=== PATIENT | male | born 1975 | race Two or more races ===

== ENCOUNTER 2021-08-16 02:05 | Inpatient (IN) | payer SELFPAY ==
[~2021-08-16] VITALS: Ht 162.6 cm; Wt 92.0 kg
[2021-08-16] VITALS (13 sets, daily range): BP systolic 128–194; BP diastolic 81–107
[2021-08-16] MEDS ORDERED: ONDANSETRON PF 4 MG/2 ML VIAL. ONE ×2 (02:33→10:50)
[2021-08-16] MEDS ORDERED: MORPHINE SULFATE 4 MG/ML INJ. ONE (02:33)
[2021-08-16] MEDS ORDERED: LABETALOL 20 MG/4 ML DISP.SYRIN. IVP ONE (02:33)
[2021-08-16] MEDS ORDERED: LIDO:MAALOX 1:1 20 ML SINGLE DOSE. ONE (03:05)
[2021-08-16] MEDS ORDERED: FAMOTIDINE 20 MG/2 ML VIAL ONE (03:05)
[2021-08-16] MEDS ORDERED: HYDROmorphone 2 MG/ML INJ. ONE (04:23)
[2021-08-16] MEDS ORDERED: KETOROLAC 15 MG/ML VIAL. ONE (04:40)
[2021-08-16] MEDS ORDERED: PIPERACILLIN/TAZOBACTAM 4.5 GM in IV DEXTROSE 5% 100ML 100 ML IV ONE ×2 (05:00→12:00)
[2021-08-16] MEDS: IV DEXTROSE 5%-LACT RINGERS 1,000 ML IV SCH ×3 (05:00→20:14)
[2021-08-16] MEDS ORDERED: POTASSIUM CHLORIDE 20 MEQ TABLET.ER. PO ONE ×2 (05:00→05:27)
--- NOTE | 2021-08-16 07:09 | RAD ---
EXAMINATION: US ABDOMEN LIMITED 08/16/2021 3:28 AM INDICATION: Right upper quadrant pain TECHNIQUE: Iniguez scale and color Doppler ultrasound images of the right upper quadrant were obtained. COMPARISON: None. FINDINGS: Liver: The liver is normal in size measuring 16 cm in length. Mildly increased hepatic echogenicity. No focal liver lesion. Gallbladder: The gallbladder is mildly distended. There are several stones near the gallbladder neck measuring 2 cm. The gallbladder wall is normal in thickness measuring 3 mm. Bile ducts: The common bile duct is normal measuring 2 mm. No intrahepatic biliary duct dilatation. Right kidney: The right kidney measures 10 x 5 x 6 cm. Normal cortical thickness and echogenicity. No hydronephrosis. Other: Abdominal aorta, inferior vena cava, and pancreas are obscured by bowel gas. IMPRESSION: 1. Cholelithiasis with several stones near the gallbladder neck. The gallbladder is mildly distended but there is no wall thickening. Correlate clinically for acute cholecystitis. 2. Mild hepatic steatosis. Results discussed by Dr. Vale with Dr. Paul at 4:45 AM on 08/16/2021. Electronically signed by: Aislinn Vale MD (08/16/2021 7:07 AM) [facility]
[2021-08-16 07:10] LABS: ALBUMIN 4.3 g/dL (3.4-5.0); ALBUMIN/GLOBULIN RATIO 1.2 (1.0-1.7); CALCIUM 9.4 mg/dL (8.5-10.1); GFR 80.8; POTASSIUM 3.3 mmol/L (3.5-5.1); TOTAL BILIRUBIN 0.5 mg/dL (0.2-1.0); TOTAL PROTEIN 7.9 g/dL (6.4-8.2)
[2021-08-16 07:23] LABS: BASO % 0 % (0-3); EOS # 0.1 x10^3/uL (0.0-0.7); EOS % 1 % (0-3); HEMATOCRIT 44.6 % (39.0-53.0); LYMPH # 2.4 x10^3/uL (1.0-4.8); LYMPH % 16 % (24-48); MEAN CORPUSCULAR HEMOGLOBIN 29 pg (25-35); MEAN CORPUSCULAR HGB CONC 34 g/dL (31-37); MEAN CORPUSCULAR VOLUME 87 fL (79-100); MONO # 0.8 x10^3/uL (0.0-1.1); MONO % 5 % (0-9); NEUT # 11.2 x10^3/uL (1.8-7.7); NEUT % 78 % (31-73); PLATELET COUNT 303 x10^3/uL (140-400); RED BLOOD COUNT 5.12 x10^6/uL (4.30-5.70); RED CELL DISTRIBUTION WIDTH 12.8 % (11.5-14.5); WHITE BLOOD COUNT 14.4 x10^3/uL (4.0-11.0)
[2021-08-16] MEDS ORDERED: HYDROmorphone 2 MG TABLET PO PRN (07:45)
[2021-08-16] MEDS ORDERED: ONDANSETRON PF 4 MG/2 ML VIAL. IVP PRN (07:45)
[2021-08-16] MEDS ORDERED: HYDROmorphone 2 MG/ML INJ. IVP PRN ×2 (08:00→12:15)
--- NOTE | 2021-08-16 08:11 | RAD ---
Exam Date: 08/16/2021 2:40 AM XR CHEST 1V Indication: Reason: CHEST PAIN / Spl. Instructions: / History: . FINDINGS/ IMPRESSION: The cardiac silhouette is enlarged without congestion. There is no focal consolidation, pleural effusion or pneumothorax. The visualized osseous structures are intact. Electronically signed by: Grayson Holliday MD (08/16/2021 8:08 AM) [facility]
[2021-08-16 08:47] LABS: AMORPHOUS SEDIMENT,UR PRESENT /HPF; BACTERIA,URINE 0 /HPF (0-FEW); RBC,URINE OCC /HPF (0-2); WBC,URINE OCC /HPF (0-4)
[2021-08-16] MEDS ORDERED: SUGAMMADEX SODIUM 200 MG/2 ML VIAL. IVP ONE ×2 (09:00)
--- NOTE | 2021-08-16 09:50 | PDOC2 ---
RAFA MCMULLEN BOOTMAKER 08/16/21 0950: CONSULT Date of Consult Date of Consult DATE: 08/16/21 TIME: 09:46 Reason for Consult Reason for Consult: cholecystitis Referring Physician Referring Physician: ER Identification/Chief Complaint Chief Complaint abdominal pain Source Source: Chart review, Patient History of Present Illness Reason for Visit: Admitted with acute onset epigastric pain, associated nausea, emesis. Similar pain about 2 years ago. No constipation or diarrhea. Pain improved with medication Past Medical History Cardiovascular: HTN Endocrine: Diabetes Past Surgical History Past Surgical History: No pertinent history Family History Family History: Other (noncontributory ) Social History No ALCOHOL: occassional Drugs: None Lives: Alone Current Problem List Problem List Problems Medical Problems: (1) Acute cholecystitis Status: Acute Current Medications Current Medications Current Medications Potassium Chloride (Klor-Con) 40 meq 1X ONCE PO ; Start 08/16/21 at 05:00; Stop 08/16/21 at 05:51; Status DC Piperacillin Sod/ Tazobactam Sod 4.5 gm/Dextrose 100 ml @ 200 mls/hr 1X ONCE IV ; Start 08/16/21 at 05:00; Stop 08/16/21 at 05:51; Status DC Dextrose/Lactated Ringer's 1,000 ml @ 125 mls/hr Q8H IV ; Start 08/16/21 at 05:00; Stop 08/17/21 at 04:59 Hydromorphone HCl (Dilaudid) 1 mg PRN Q4HRS PRN PO MODERATE TO SEVERE PAIN; Start 08/16/21 at 07:45; Stop 08/16/21 at 07:47; Status DC Ondansetron HCl (Zofran) 4 mg PRN Q6HRS PRN IVP NAUSEA/VOMITING Last administered on 08/16/21at 07:55; Start 08/16/21 at 07:45 Hydromorphone HCl (Dilaudid) 1 mg PRN Q3HRS PRN IVP MODERATE TO SEVERE PAIN Last administered on 08/16/21at 07:54; Start 08/16/21 at 08:00 Ondansetron HCl (Zofran) 4 mg STK-MED ONCE .ROUTE ; Start 08/16/21 at 02:33; Stop 08/16/21 at 09:34; Status DC Labetalol HCl (Normodyne Iv Push) 20 mg STK-MED ONCE IVP ; Start 08/16/21 at 02:33; Stop 08/16/21 at 09:34; Status DC Morphine Sulfate (Morphine Sulfate) 4 mg STK-MED ONCE .ROUTE ; Start 08/16/21 at 02:33; Stop 08/16/21 at 09:34; Status DC Multi-Ingredient Mouthwash/Gargle (Gi Cocktail) 20 ml STK-MED ONCE .ROUTE ; Start 08/16/21 at 03:05; Stop 08/16/21 at 09:34; Status DC Famotidine (Pepcid Vial) 20 mg STK-MED ONCE .ROUTE ; Start 08/16/21 at 03:05; Stop 08/16/21 at 09:34; Status DC Hydromorphone HCl (Dilaudid) 2 mg STK-MED ONCE .ROUTE ; Start 08/16/21 at 04:23; Stop 08/16/21 at 09:34; Status DC Ketorolac Tromethamine (Toradol 15mg Vial) 15 mg STK-MED ONCE .ROUTE ; Start 08/16/21 at 04:40; Stop 08/16/21 at 09:34; Status DC Potassium Chloride (Klor-Con) 20 meq STK-MED ONCE PO ; Start 08/16/21 at 05:27; Stop 08/16/21 at 09:34; Status DC Allergies Allergies: Coded Allergies: No Known Drug Allergies (Unverified , 08/16/21) ROS General: No: Chills, Other (fevers ) PSYCHOLOGICAL ROS: No: Anxiety, Depression Eyes: No Blurry vision, No Double vision HEENT: No: Heacaches, Sore Throat Hematological and Lymphatic: No: Bleeding Problems, Blood Clots Respiratory: No: Cough, Shortness of breath Cardiovascular: No Chest Pain, No Palpitations Gastrointestinal: Yes Other (see hpi) Genitourinary: No Dysuria, No Hematuria Musculoskeletal: No Joint Pain, No Muscle Pain Neurological: No Impaired Coord/balance, No Numbness/Tingling Skin: No Pruritus, No Rash Physical Exam General: Alert, Oriented X3, Cooperative HEENT: Atraumatic Lungs: Clear to auscultation, Normal air movement Heart: Regular rate, Normal S1, Normal S2 Abdomen: Soft, Other (mild ttp epigastric area) Extremities: No clubbing, No cyanosis Skin: No rashes, No breakdown Neuro: Normal gait, Normal speech Psych/Mental Status: Mental status NL, Mood NL MUSCULOSKELETAL: No deformity, No swelling Vitals VITALS Vital Signs Date Time Temp Pulse Resp B/P (MAP) Pulse Ox O2 Delivery O2 Flow Rate FiO2 08/16/21 07:54 Room Air 08/16/21 07:00 98.4 71 16 128/82 (97) 96 98.4 Labs Labs Laboratory Tests Test 08/16/21 02:40 08/16/21 04:00 08/16/21 04:36 08/16/21 08:10 White Blood Count 14.4 x10^3/uL (4.0-11.0) Red Blood Count 5.12 x10^6/uL (4.30-5.70) Hemoglobin 15.0 g/dL (13.0-17.5) Hematocrit 44.6 % (39.0-53.0) Mean Corpuscular Volume 87 fL (79-100) Mean Corpuscular Hemoglobin 29 pg (25-35) Mean Corpuscular Hemoglobin Concent 34 g/dL (31-37) Red Cell Distribution Width 12.8 % (11.5-14.5) Platelet Count 303 x10^3/uL (140-400) Neutrophils (%) (Auto) 78 % (31-73) Lymphocytes (%) (Auto) 16 % (24-48) Monocytes (%) (Auto) 5 % (0-9) Eosinophils (%) (Auto) 1 % (0-3) Basophils (%) (Auto) 0 % (0-3) Neutrophils # (Auto) 11.2 x10^3/uL (1.8-7.7) Lymphocytes # (Auto) 2.4 x10^3/uL (1.0-4.8) Monocytes # (Auto) 0.8 x10^3/uL (0.0-1.1) Eosinophils # (Auto) 0.1 x10^3/uL (0.0-0.7) Basophils # (Auto) 0.0 x10^3/uL (0.0-0.2) Prothrombin Time 12.0 SEC (11.7-14.0) Prothromb Time International Ratio 0.9 (0.8-1.1) Activated Partial Thromboplast Time 24 SEC (24-38) Sodium Level 139 mmol/L (136-145) Potassium Level 3.3 mmol/L (3.5-5.1) Chloride Level 99 mmol/L (98-107) Carbon Dioxide Level 29 mmol/L (21-32) Anion Gap 11 (6-14) Blood Urea Nitrogen 18 mg/dL (8-26) Creatinine 1.0 mg/dL (0.7-1.3) Estimated GFR (Cockcroft-Gault) 80.8 BUN/Creatinine Ratio 18 (6-20) Glucose Level 188 mg/dL (70-99) Calcium Level 9.4 mg/dL (8.5-10.1) Total Bilirubin 0.5 mg/dL (0.2-1.0) Aspartate Amino Transf (AST/SGOT) 11 U/L (15-37) Alanine Aminotransferase (ALT/SGPT) 26 U/L (16-63) Alkaline Phosphatase 67 U/L (46-116) Troponin I High Sensitivity 4 ng/L (4-75) 5 ng/L (4-75) OF-Nxw-E-Type Natriuretic Peptide 13 pg/mL (0-124) Total Protein 7.9 g/dL (6.4-8.2) Albumin 4.3 g/dL (3.4-5.0) Albumin/Globulin Ratio 1.2 (1.0-1.7) Lipase 116 U/L (73-393) Urine Collection Type Unknown Urine Color (Auto) Light yellow Urine Turbidity Hazy Urine pH (Auto) 7.0 (<5.0-8.0) Urine Specific Babcock 1.023 (1.000-1.030) Urine Protein (Auto) Negative mg/dL (Negative) Urine Glucose (Auto)(UA) Negative mg/dL (Negative) Urine Ketones (Auto) 20 mg/dL (Negative) Urine Blood (Auto) Negative (Negative) Urine Nitrite (Auto) Negative (Negative) Urine Bilirubin (Auto) Negative (Negative) Urine Urobilinogen (Auto) Normal mg/dL (Normal) Urine Leukocyte Esterase (Auto) Negative (Negative) Urine RBC Occ /HPF (0-2) Urine WBC Occ /HPF (0-4) Urine Squamous Epithelial Cells Few /LPF Urine Amorphous Sediment Present /HPF Urine Bacteria 0 /HPF (0-FEW) Urine Mucus Marked /LPF SARS-CoV-2 Antigen (Rapid) Negative (NEGATIVE) Laboratory Tests Test 08/16/21 02:40 08/16/21 04:00 08/16/21 04:36 08/16/21 08:10 White Blood Count 14.4 x10^3/uL (4.0-11.0) Red Blood Count 5.12 x10^6/uL (4.30-5.70) Hemoglobin 15.0 g/dL (13.0-17.5) Hematocrit 44.6 % (39.0-53.0) Mean Corpuscular Volume 87 fL (79-100) Mean Corpuscular Hemoglobin 29 pg (25-35) Mean Corpuscular Hemoglobin Concent 34 g/dL (31-37) Red Cell Distribution Width 12.8 % (11.5-14.5) Platelet Count 303 x10^3/uL (140-400) Neutrophils (%) (Auto) 78 % (31-73) Lymphocytes (%) (Auto) 16 % (24-48) Monocytes (%) (Auto) 5 % (0-9) Eosinophils (%) (Auto) 1 % (0-3) Basophils (%) (Auto) 0 % (0-3) Neutrophils # (Auto) 11.2 x10^3/uL (1.8-7.7) Lymphocytes # (Auto) 2.4 x10^3/uL (1.0-4.8) Monocytes # (Auto) 0.8 x10^3/uL (0.0-1.1) Eosinophils # (Auto) 0.1 x10^3/uL (0.0-0.7) Basophils # (Auto) 0.0 x10^3/uL (0.0-0.2) Prothrombin Time 12.0 SEC (11.7-14.0) Prothromb Time International Ratio 0.9 (0.8-1.1) Activated Partial Thromboplast Time 24 SEC (24-38) Sodium Level 139 mmol/L (136-145) Potassium Level 3.3 mmol/L (3.5-5.1) Chloride Level 99 mmol/L (98-107) Carbon Dioxide Level 29 mmol/L (21-32) Anion Gap 11 (6-14) Blood Urea Nitrogen 18 mg/dL (8-26) Creatinine 1.0 mg/dL (0.7-1.3) Estimated GFR (Cockcroft-Gault) 80.8 BUN/Creatinine Ratio 18 (6-20) Glucose Level 188 mg/dL (70-99) Calcium Level 9.4 mg/dL (8.5-10.1) Total Bilirubin 0.5 mg/dL (0.2-1.0) Aspartate Amino Transf (AST/SGOT) 11 U/L (15-37) Alanine Aminotransferase (ALT/SGPT) 26 U/L (16-63) Alkaline Phosphatase 67 U/L (46-116) Troponin I High Sensitivity 4 ng/L (4-75) 5 ng/L (4-75) AH-Qwo-M-Type Natriuretic Peptide 13 pg/mL (0-124) Total Protein 7.9 g/dL (6.4-8.2) Albumin 4.3 g/dL (3.4-5.0) Albumin/Globulin Ratio 1.2 (1.0-1.7) Lipase 116 U/L (73-393) Urine Collection Type Unknown Urine Color (Auto) Light yellow Urine Turbidity Hazy Urine pH (Auto) 7.0 (<5.0-8.0) Urine Specific Babcock 1.023 (1.000-1.030) Urine Protein (Auto) Negative mg/dL (Negative) Urine Glucose (Auto)(UA) Negative mg/dL (Negative) Urine Ketones (Auto) 20 mg/dL (Negative) Urine Blood (Auto) Negative (Negative) Urine Nitrite (Auto) Negative (Negative) Urine Bilirubin (Auto) Negative (Negative) Urine Urobilinogen (Auto) Normal mg/dL (Normal) Urine Leukocyte Esterase (Auto) Negative (Negative) Urine RBC Occ /HPF (0-2) Urine WBC Occ /HPF (0-4) Urine Squamous Epithelial Cells Few /LPF Urine Amorphous Sediment Present /HPF Urine Bacteria 0 /HPF (0-FEW) Urine Mucus Marked /LPF SARS-CoV-2 Antigen (Rapid) Negative (NEGATIVE) Assessment/Plan Assessment/Plan cholecystitis plan lap alice today JAMIA HENDRICKSON MD 08/16/21 3678: CONSULT Assessment/Plan Assessment/Plan The patient was seen and examined by myself; the patient is a 46-year-old male presented with acute onset of abdominal pain. The pain is located in the upper mid epigastrium with radiation of right upper quadrant. He reports associated nausea no vomiting. He denies having this type of pain in the past. It has remained sharp and severe. The ER evaluation is consistent with acute cholecystitis. PMH/PSH/ROS/SH as above; exam: alert, oriented, no distress, no neck masses, lungs clear, heart RR and R, abdomen soft, tender with palpation in RUQ and upper midepigastrium, neuro grossly intact, no extremity deformities or pain; A/P) Acute cholecystitis, plan for lap alice. The details and risks of surgery were discussed with the patient. He understands and would like to proceed. RAFA MCMULLEN APRN Aug 16, 2021 09:50 JAMAI HENDRICKSON MD Aug 16, 2021 13:35
[2021-08-16] MEDS ORDERED: hydrALAZINE 20 MG/ML VIAL. IVP PRN (10:45)
[2021-08-16] MEDS ORDERED: PROPOFOL 10 MG/ML (20ML) VIAL. IV ONE ×2 (10:49→13:00)
[2021-08-16] MEDS ORDERED: DEXAMETHASONE SOD PHOS 4 MG/ML VIAL ONE (10:50)
[2021-08-16] MEDS ORDERED: LIDOCAINE 2% PF 5 ML VIAL. ONE (10:50)
[2021-08-16] MEDS ORDERED: fentaNYL PF VIAL 100 MCG/2 ML VIAL ONE ×3 (10:53→13:19)
[2021-08-16] MEDS ORDERED: MIDAZOLAM HCL/PF 2 MG/2 ML VIAL. ONE (10:53)
[2021-08-16] MEDS ORDERED: IOHEXOL 300 MG/ML 50 ML VIAL. ONE (11:54)
[2021-08-16] MEDS ORDERED: SURGICEL HEMOSTAT 4X8 EACH. ONE ×2 (11:54→13:16)
[2021-08-16] MEDS ORDERED: BUPIVACAINE-EPI 0.5% 30 ML VIAL KIT. ONE (11:54)
[2021-08-16] MEDS: fentaNYL PF VIAL 100 MCG/2 ML VIAL IVP PRN ×2 (12:05→12:10)
[2021-08-16] MEDS ORDERED: IV RINGERS,LACTATED 1000ML 1,000 ML IV SCH (12:15)
[2021-08-16] MEDS ORDERED: fentaNYL PF VIAL 100 MCG/2 ML VIAL IVP PRN (12:15)
[2021-08-16] MEDS ORDERED: PROCHLORPERAZINE 10 MG/2 ML VIAL. IVP PRN (12:15)
[2021-08-16] MEDS ORDERED: ESMOLOL 100 MG/10 ML VIAL. IVP ONE (12:36)
[2021-08-16] MEDS ORDERED: PHENYLEPHRINE in 0.9% NACL PF 1 MG/10 ML SYRINGE. IV ONE (12:38)
[2021-08-16] MEDS ORDERED: ePHEDrine PF IN SALINE 50 MG/10 ML SYRINGE. IV ONE (12:47)
--- NOTE | 2021-08-16 13:32 | PDOC4 ---
Operative Note Operative Note Operative Note: Preoperative Diagnosis: Acute cholecystitis Postoperative Diagnosis: Severe acute cholecystitis Procedure: Laparoscopic cholecystectomy with intraoperative cholangiogram Surgeons: Blair Supervisor Lump Room: DUNCAN Estrada, Nghia Le MS 4 Anesthesia: Gen. Estimated Blood Loss: 40 mL Specimen: Gallbladder to pathology Drains: None Complications: None Indications: The patient is a 46-year-old male who was admitted with abdominal pain. His evaluation is consistent with acute cholecystitis. Surgical treatment was offered by means of a laparoscopic cholecystectomy. The risks of surgery were discussed which include bleeding, infection, bile duct injury, bile leak, pain, the potential for additional surgeries or procedures. The patient understands and would like to proceed. Description: The patient was taken to the operating room and laid supine on the operating table. General anesthesia was performed. The abdomen was prepped with ChloraPrep and draped in a standard surgical fashion. A small supraumbilical incision was made with a scalpel. The Veress needle was then inserted and a pneumoperitoneum was then created. A 5 mm trocar was then inserted and the laparoscope was introduced. In the upper midabdomen an 11 mm trocar was inserted and in the right upper quadrant two 5 mm trochars were inserted. The gallbladder appeared markedly inflamed with patchy areas of gangrenous change. Approximately 80 cc of bilious fluid was aspirated providing gallbladder decompression. The gallbladder was retracted cephalad. The cystic duct was dissected free from surrounding tissues. One clip was placed on the duct near the gallbladder junction. An opening was made in the duct and a cholangiocatheter placed within and secured with a clip. Using contrast dye and fluoroscopy an intraoperative cholangiogram was performed that appeared unremarkable. The clip and catheter were then withdrawn. Three clips were placed on the cystic duct and it was divided. The cystic artery was then identified, dissected free, doubly clipped and divided as well. The gallbladder was then mobilized away from the liver with cautery. A Surgicel pack was placed on the gallbladder fossa to assist with any oozing. The gallbladder was then placed in an endoscopic bag and extracted at the superior trocar site. The fascia there was closed with 0 Vicryl sutures and infiltrated with 0.5% marcaine. All blood and irrigation fluid was suctioned and hemostasis was good. The remaining ports were removed and the pneumoperitoneum was relieved. The skin incisions were closed using 4-0 Monocryl suture. Steri-Strips and dressings were then applied. The patient tolerated the procedure well and was sent to the recovery room in stable condition. At the end of the case all counts were correct. JAMIA HENDRICKSON MD Aug 16, 2021 13:32
[2021-08-16] MEDS ORDERED: oxyCODONE/APAP 5/325 1 TAB TABLET PO PRN (13:45)
[2021-08-16] MEDS ORDERED: MORPHINE SULFATE 2 MG/ML INJ. ONE (14:29)
[2021-08-16] MEDS: MORPHINE SULFATE 2 MG/ML INJ. IVP PRN ×2 (14:34→14:47)
--- NOTE | 2021-08-16 15:23 | RAD ---
Intraoperative fluoroscopic support 08/16/2021 Discussion: Intraoperative fluoroscopic support provided during cholecystectomy with intraoperative c holangiogram. Total fluoroscopy time reported 18.9 seconds. Submitted static images demonstrate opaci fication of the cystic duct and biliary tree with contrast spillage into the duodenum. No filling def ects or other overt abnormalities are identified. Refer to operative notes for details. IMPRESSION: Intraoperative fluoroscopic support provided. Electronically signed by: Foreign Askew MD (08/16/2021 3:20 PM) [id number]
[2021-08-16] MEDS: oxyCODONE/APAP 5/325 1 TAB TABLET PO PRN ×2 (17:51→21:30)
[2021-08-17] MEDS: oxyCODONE/APAP 5/325 1 TAB TABLET PO PRN ×3 (01:46→10:28)
[2021-08-17 03:00] VITALS: BP 114/78
[2021-08-17 07:00] VITALS: BP 121/73
--- NOTE | 2021-08-17 10:15 | PDOC1 ---
History and Physical Date of Service: DOS: Late Entry 08/16 Chief Complaint: Chief Complain: abd pain History of Present Illness: HPI: Presented to outside emergency room with couple day history of worsening abdominal pain nausea vomiting. Found to have cholecystitis and sent here for surgical evaluation. Planning for surgery today. Past Medical/Surgical History: PMH/PSH: no0ne known Allergies: Allergies: Coded Allergies: No Known Drug Allergies (Unverified , 08/16/21) Family History: Family History: htn Social History: Social History: denies alcohol tobacco drug use Current Medications: Current Medications Current Medications Potassium Chloride (Klor-Con) 40 meq 1X ONCE PO ; Start 08/16/21 at 05:00; Stop 08/16/21 at 05:51; Status DC Piperacillin Sod/ Tazobactam Sod 4.5 gm/Dextrose 100 ml @ 200 mls/hr 1X ONCE IV ; Start 08/16/21 at 05:00; Stop 08/16/21 at 05:51; Status DC Dextrose/Lactated Ringer's 1,000 ml @ 125 mls/hr Q8H IV Last administered on 08/16/21at 20:14; Start 08/16/21 at 05:00; Stop 08/17/21 at 04:59; Status DC Hydromorphone HCl (Dilaudid) 1 mg PRN Q4HRS PRN PO MODERATE TO SEVERE PAIN; Start 08/16/21 at 07:45; Stop 08/16/21 at 07:47; Status DC Ondansetron HCl (Zofran) 4 mg PRN Q6HRS PRN IVP NAUSEA/VOMITING Last administered on 08/16/21at 07:55; Start 08/16/21 at 07:45 Hydromorphone HCl (Dilaudid) 1 mg PRN Q3HRS PRN IVP MODERATE TO SEVERE PAIN Last administered on 08/16/21at 07:54; Start 08/16/21 at 08:00 Ondansetron HCl (Zofran) 4 mg STK-MED ONCE .ROUTE ; Start 08/16/21 at 02:33; Stop 08/16/21 at 09:34; Status DC Labetalol HCl (Normodyne Iv Push) 20 mg STK-MED ONCE IVP ; Start 08/16/21 at 02:33; Stop 08/16/21 at 09:34; Status DC Morphine Sulfate (Morphine Sulfate) 4 mg STK-MED ONCE .ROUTE ; Start 08/16/21 at 02:33; Stop 08/16/21 at 09:34; Status DC Multi-Ingredient Mouthwash/Gargle (Gi Cocktail) 20 ml STK-MED ONCE .ROUTE ; Start 08/16/21 at 03:05; Stop 08/16/21 at 09:34; Status DC Famotidine (Pepcid Vial) 20 mg STK-MED ONCE .ROUTE ; Start 08/16/21 at 03:05; St op 08/16/21 at 09:34; Status DC Hydromorphone HCl (Dilaudid) 2 mg STK-MED ONCE .ROUTE ; Start 08/16/21 at 04:23; Stop 08/16/21 at 09:34; Status DC Ketorolac Tromethamine (Toradol 15mg Vial) 15 mg STK-MED ONCE .ROUTE ; Start 08/16/21 at 04:40; Stop 08/16/21 at 09:34; Status DC Potassium Chloride (Klor-Con) 20 meq STK-MED ONCE PO ; Start 08/16/21 at 05:27; Stop 08/16/21 at 09:34; Status DC Hydralazine HCl (Apresoline Inj) 10 mg PRN Q4HRS PRN IVP ELEVATED BP, SEE COMMENTS Last administered on 08/16/21at 10:40; Start 08/16/21 at 10:45 Propofol (Diprivan) 200 mg STK-MED ONCE IV ; Start 08/16/21 at 10:49; Stop 08/16/21 at 10:50; Status DC Lidocaine HCl (Lidocaine Pf 2% Vial) 5 ml STK-MED ONCE .ROUTE ; Start 08/16/21 at 10:50; Stop 08/16/21 at 10:50; Status DC Dexamethasone Sodium Phosphate (Decadron) 4 mg STK-MED ONCE .ROUTE ; Start 08/16/21 at 10:50; Stop 08/16/21 at 10:50; Status DC Ondansetron HCl (Zofran) 4 mg STK-MED ONCE .ROUTE ; Start 08/16/21 at 10:50; Stop 08/16/21 at 10:50; Status DC Fentanyl Citrate (Fentanyl 2ml Vial) 100 mcg STK-MED ONCE .ROUTE ; Start 08/16/21 at 10:53; Stop 08/16/21 at 10:53; Status DC Midazolam HCl (Versed) 2 mg STK-MED ONCE .ROUTE ; Start 08/16/21 at 10:53; Stop 08/16/21 at 10:54; Status DC Piperacillin Sod/ Tazobactam Sod 4.5 gm/Dextrose 100 ml @ 200 mls/hr 1X ONCE IV Last administered on 08/16/21at 11:55; Start 08/16/21 at 12:00; Stop 08/16/21 at 12:29; Status DC Bupivacaine HCl/ Epinephrine Bitart (Sensorcain-Epi 0.5% Kit) 30 ml STK-MED ONCE .ROUTE Last administered on 08/16/21at 12:46; Start 08/16/21 at 11:54; Stop 08/16/21 at 11:55; Status DC Iohexol (Omnipaque 300 Mg/ml) 50 ml STK-MED ONCE .ROUTE Last administered on 08/16/21at 12:46; Start 08/16/21 at 11:54; Stop 08/16/21 at 11:55; Status DC Cellulose (Surgicel Hemostat 4x8) 1 each STK-MED ONCE .ROUTE ; Start 08/16/21 at 11:54; Stop 08/16/21 at 11:55; Status DC Fentanyl Citrate (Fentanyl 2ml Vial) 100 mcg STK-MED ONCE .ROUTE ; Start 08/16/21 at 11:59; Stop 08/16/21 at 11:59; Status DC Fentanyl Citrate (Fentanyl 2ml Vial) 25 mcg PRN Q5MIN PRN IVP MILD PAIN 1-3; Start 08/16/21 at 12:15; Stop 08/17/21 at 12:14 Fentanyl Citrate (Fentanyl 2ml Vial) 50 mcg PRN Q5MIN PRN IVP MODERATE PAIN 4-6 Last administered on 08/16/21at 12:10; Start 08/16/21 at 12:15; Stop 08/17/21 at 12:14 Morphine Sulfate (Morphine Sulfate) 1 mg PRN Q10MIN PRN IVP SEVERE PAIN 7-10 Last administered on 08/16/21at 14:47; Start 08/16/21 at 12:15; Stop 08/17/21 at 12: 14 Ringer's Solution 1,000 ml @ 30 mls/hr Q24H IV ; Start 08/16/21 at 12:15; Stop 08/17/21 at 00:14; Status DC Hydromorphone HCl (Dilaudid) 0.5 mg PRN Q10MIN PRN IVP SEVERE PAIN 7-10, 2nd CHOICE; Start 08/16/21 at 12:15; Stop 08/17/21 at 12:14 Prochlorperazine Edisylate (Compazine) 5 mg PACU PRN PRN IVP NAUSEA, MRX1; Start 08/16/21 at 12:15; Stop 08/17/21 at 12:14 Esmolol HCl (Brevibloc) 100 mg STK-MED ONCE IVP ; Start 08/16/21 at 12:36; Stop 08/16/21 at 12:36; Status DC Phenylephrine HCl (PHENYLEPHRINE in 0.9% NACL PF) 1 mg STK-MED ONCE IV ; Start 08/16/21 at 12:38; Stop 08/16/21 at 12:38; Status DC Ephedrine Sulfate (ePHEDrine PF IN SALINE SYRINGE) 50 mg STK-MED ONCE IV ; Start 08/16/21 at 12:47; Stop 08/16/21 at 12:47; Status DC Propofol (Diprivan) 200 mg STK-MED ONCE IV ; Start 08/16/21 at 13:00; Stop 08/16/21 at 13:00; Status DC Cellulose (Surgicel Hemostat 4x8) 1 each STK-MED ONCE .ROUTE ; Start 08/16/21 at 13:16; Stop 08/16/21 at 13:17; Status DC Fentanyl Citrate (Fentanyl 2ml Vial) 100 mcg STK-MED ONCE .ROUTE ; Start 08/16/21 at 13:19; Stop 08/16/21 at 13:20; Status DC Oxycodone/ Acetaminophen (Percocet 5/325) 1 tab PRN Q4HRS PRN PO MODERATE PAIN; Start 08/16/21 at 13:45 Oxycodone/ Acetaminophen (Percocet 5/325) 2 tab PRN Q4HRS PRN PO SEVERE PAIN Last administered on 08/17/21at 05:50; Start 08/16/21 at 13:45 Morphine Sulfate (Morphine Sulfate) 2 mg STK-MED ONCE .ROUTE ; Start 08/16/21 at 14:29; Stop 08/16/21 at 14:29; Status DC Sugammadex Sodium (Bridion) 200 mg 1X ONCE IVP ; Start 08/16/21 at 09:00; Stop 08/17/21 at 09:49; Status DC Sugammadex Sodium (Bridion) 200 mg STK-MED ONCE IVP ; Start 08/16/21 at 09:00; Stop 08/17/21 at 09:49; Status DC ROS: Review of Systems Review of System Unless noted in HPI 14 point review of systems was negative Physical Exam: Vital Signs: Vital Signs Date Time Temp Pulse Resp B/P (MAP) Pulse Ox O2 Delivery O2 Flow Rate FiO2 08/17/21 08:00 Room Air 08/17/21 07:00 98.0 67 18 121/73 (89) 96 98.0 08/16/21 14:06 10.0 Physcial Exam: GEN: No apparent distress. Alert and oriented HEENT: Normal cephalic, atraumatic, external auditory canals are patent EYES: Extraocular muscles are intact, pupil are equally round and reactive to light and accommodation MUSCULOSKELETAL: Well developed , well nourished, good range of motion ENDOCRINE: No thyromegaly was palpated LYMPHATICS: No cervical chain or axillary nodes were noted HEMATOPOIETIC: No bruising NECK: Supple, no JVD, no thyromegaly was noted LUNGS: Clear to auscultation in all lung wei without rhonchi or wheezing HEART: RRR, S!, S2 present. Peripheral pulses intact, no obvious murmurs noted ABDOMEN: Soft, nontender. Positive bowel sounds, no organomegaly, normal bowel sounds EXTREMITIES: Without clubbing, cyanosis, or edema. Pedal pulses intact. Negative Homans sign NEUROLOGIC: Normal speech and tone. A&O x 3, moves all extremities, no obvious focal deficits PSYCHIATRIC: Normal affect, normal mood. Stable SKIN: No ulcerations or rashes, good skin turgor, no jaundice VASCULAR: Good capillary refill, neurovascular bundle appears to be intact Labs: Labs: Laboratory Tests Test 08/16/21 02:40 08/16/21 04:00 08/16/21 04:36 08/16/21 08:10 White Blood Count 14.4 x10^3/uL (4.0-11.0) Red Blood Count 5.12 x10^6/uL (4.30-5.70) Hemoglobin 15.0 g/dL (13.0-17.5) Hematocrit 44.6 % (39.0-53.0) Mean Corpuscular Volume 87 fL (79-100) Mean Corpuscular Hemoglobin 29 pg (25-35) Mean Corpuscular Hemoglobin Concent 34 g/dL (31-37) Red Cell Distribution Width 12.8 % (11.5-14.5) Platelet Count 303 x10^3/uL (140-400) Neutrophils (%) (Auto) 78 % (31-73) Lymphocytes (%) (Auto) 16 % (24-48) Monocytes (%) (Auto) 5 % (0-9) Eosinophils (%) (Auto) 1 % (0-3) Basophils (%) (Auto) 0 % (0-3) Neutrophils # (Auto) 11.2 x10^3/uL (1.8-7.7) Lymphocytes # (Auto) 2.4 x10^3/uL (1.0-4.8) Monocytes # (Auto) 0.8 x10^3/uL (0.0-1.1) Eosinophils # (Auto) 0.1 x10^3/uL (0.0-0.7) Basophils # (Auto) 0.0 x10^3/uL (0.0-0.2) Prothrombin Time 12.0 SEC (11.7-14.0) Prothromb Time International Ratio 0.9 (0.8-1.1) Activated Partial Thromboplast Time 24 SEC (24-38) Sodium Level 139 mmol/L (136-145) Potassium Level 3.3 mmol/L (3.5-5.1) Chloride Level 99 mmol/L (98-107) Carbon Dioxide Level 29 mmol/L (21-32) Anion Gap 11 (6-14) Blood Urea Nitrogen 18 mg/dL (8-26) Creatinine 1.0 mg/dL (0.7-1.3) Estimated GFR (Cockcroft-Gault) 80.8 BUN/Creatinine Ratio 18 (6-20) Glucose Level 188 mg/dL (70-99) Calcium Level 9.4 mg/dL (8.5-10.1) Total Bilirubin 0.5 mg/dL (0.2-1.0) Aspartate Amino Transf (AST/SGOT) 11 U/L (15-37) Alanine Aminotransferase (ALT/SGPT) 26 U/L (16-63) Alkaline Phosphatase 67 U/L (46-116) Troponin I High Sensitivity 4 ng/L (4-75) 5 ng/L (4-75) KZ-Xhu-[id number]-Type Natriuretic Peptide 13 pg/mL (0-124) Total Protein 7.9 g/dL (6.4-8.2) Albumin 4.3 g/dL (3.4-5.0) Albumin/Globulin Ratio 1.2 (1.0-1.7) Lipase 116 U/L (73-393) Urine Collection Type Unknown Urine Color (Auto) Light yellow Urine Turbidity Hazy Urine pH (Auto) 7.0 (<5.0-8.0) Urine Specific [place] 1.023 (1.000-1.030) Urine Protein (Auto) Negative mg/dL (Negative) Urine Glucose (Auto)(UA) Negative mg/dL (Negative) Urine Ketones (Auto) 20 mg/dL (Negative) Urine Blood (Auto) Negative (Negative) Urine Nitrite (Auto) Negative (Negative) Urine Bilirubin (Auto) Negative (Negative) Urine Urobilinogen (Auto) Normal mg/dL (Normal) Urine Leukocyte Esterase (Auto) Negative (Negative) Urine RBC Occ /HPF (0-2) Urine WBC Occ /HPF (0-4) Urine Squamous Epithelial Cells Few /LPF Urine Amorphous Sediment Present /HPF Urine Bacteria 0 /HPF (0-FEW) Urine Mucus Marked /LPF SARS-CoV-2 Antigen (Rapid) Negative (NEGATIVE) Assessment/Plan Assessment/Plan Cholecystitis -Admit to [facility] -Surgical team planning for OR today. -Preoperative biotics -Advance diet as tolerated after surgery -As needed pain control -Could possibly go home next day. Justifications for Admission Other Justification MARKIE SHAFFER MD Aug 17, 2021 10:15
[2021-08-17] MEDS ORDERED: POLYETHYLENE GLYCOL 3350 17 GM PACKET. PO PRN (10:30)
[2021-08-17 10:39] VITALS: BP 123/78
--- NOTE | 2021-08-17 12:18 | PDOC ---
[facility] PROGRESS NOTE Date of Service DOS: DATE: 08/17/21 TIME: 12:16 Chief Complaint Chief Complaint Cholecystitis -Admit to MedSur -SOD 1 -Advance diet as tolerated after surgery -As needed pain control -stool sofetener Can d/c if ok with surgical team History of Present Illness History of Present Illness 08/17 Patient evaluated examined at bedside. Resting in bed. Said pain well controlled tolerating diet. Has not had a bowel movement since before surgery. Can discharge today if okay with surgical team. Vitals/I&O Vitals/I&O: Vital Signs Date Time Temp Pulse Resp B/P (MAP) Pulse Ox O2 Delivery O2 Flow Rate FiO2 08/17/21 11:04 Room Air 08/17/21 10:39 98.8 69 18 123/78 (93) 96 98.8 08/16/21 14:06 10.0 I & O 08/16/21 08/16/21 08/17/21 15:00 23:00 07:00 Intake Total 550 ml 100 ml 120 ml Output Total 40 ml 925 ml Balance 510 ml 100 ml -805 ml Physical Exam General: Alert, Oriented X3, Cooperative Heart: Regular rate, Normal S1, Normal S2 Abdomen: Soft, Other (mild ttp epigastric area) Extremities: No clubbing, No cyanosis Skin: No rashes, No breakdown Assessment and Plan Assessmemt and Plan Problems Medical Problems: (1) Acute cholecystitis Status: Acute Comment Review of Relevant I have reviewed the following items new (where applicable) has been applied. Medications: Current Medications Medications (Trade) Dose Ordered Sig/Jorge Route PRN Reason Start Time Stop Time Status Last Admin Dose Admin Oxycodone/ Acetaminophen (Percocet 5/325) 2 tab PRN Q4HRS PRN PO SEVERE PAIN 08/16/21 13:45 08/17/21 10:28 Polyethylene Glycol (miraLAX PACKET) 17 gm PRN DAILY PRN PO CONSTIPATION 08/17/21 10:30 08/17/21 11:04 Justifications for Admission Other Justification MARKIE SHAFFER MD Aug 17, 2021 12:18
[2021-08-17] MEDS ORDERED: OXYC1TAB15 PO (14:09)
--- NOTE | 2021-08-17 14:15 | PDOC ---
SURGICAL PROGRESS NOTE DATE: 08/17/21 TIME: 14:12 Subjective tolerating diet no nausea Vital Signs Vital Signs Date Time Temp Pulse Resp B/P (MAP) Pulse Ox O2 Delivery O2 Flow Rate FiO2 08/17/21 11:04 Room Air 08/17/21 10:39 98.8 69 18 123/78 (93) 96 98.8 08/16/21 14:06 10.0 I&O Intake and Output 08/17/21 07:00 Intake Total 770 ml Output Total 965 ml Balance -195 ml Intake Oral 120 ml IV Total 650 ml Output Urine Total 925 ml Estimated Blood Loss 40 ml General: Alert, Oriented X3, Cooperative Abdomen: Soft, Other (lap sites intact) Labs Laboratory Tests Test 08/16/21 02:40 08/16/21 04:00 08/16/21 04:36 08/16/21 08:10 White Blood Count 14.4 x10^3/uL (4.0-11.0) Red Blood Count 5.12 x10^6/uL (4.30-5.70) Hemoglobin 15.0 g/dL (13.0-17.5) Hematocrit 44.6 % (39.0-53.0) Mean Corpuscular Volume 87 fL (79-100) Mean Corpuscular Hemoglobin 29 pg (25-35) Mean Corpuscular Hemoglobin Concent 34 g/dL (31-37) Red Cell Distribution Width 12.8 % (11.5-14.5) Platelet Count 303 x10^3/uL (140-400) Neutrophils (%) (Auto) 78 % (31-73) Lymphocytes (%) (Auto) 16 % (24-48) Monocytes (%) (Auto) 5 % (0-9) Eosinophils (%) (Auto) 1 % (0-3) Basophils (%) (Auto) 0 % (0-3) Neutrophils # (Auto) 11.2 x10^3/uL (1.8-7.7) Lymphocytes # (Auto) 2.4 x10^3/uL (1.0-4.8) Monocytes # (Auto) 0.8 x10^3/uL (0.0-1.1) Eosinophils # (Auto) 0.1 x10^3/uL (0.0-0.7) Basophils # (Auto) 0.0 x10^3/uL (0.0-0.2) Prothrombin Time 12.0 SEC (11.7-14.0) Prothromb Time International Ratio 0.9 (0.8-1.1) Activated Partial Thromboplast Time 24 SEC (24-38) Sodium Level 139 mmol/L (136-145) Potassium Level 3.3 mmol/L (3.5-5.1) Chloride Level 99 mmol/L (98-107) Carbon Dioxide Level 29 mmol/L (21-32) Anion Gap 11 (6-14) Blood Urea Nitrogen 18 mg/dL (8-26) Creatinine 1.0 mg/dL (0.7-1.3) Estimated GFR (Cockcroft-Gault) 80.8 BUN/Creatinine Ratio 18 (6-20) Glucose Level 188 mg/dL (70-99) Calcium Level 9.4 mg/dL (8.5-10.1) Total Bilirubin 0.5 mg/dL (0.2-1.0) Aspartate Amino Transf (AST/SGOT) 11 U/L (15-37) Alanine Aminotransferase (ALT/SGPT) 26 U/L (16-63) Alkaline Phosphatase 67 U/L (46-116) Troponin I High Sensitivity 4 ng/L (4-75) 5 ng/L (4-75) AA-Ylf-K-Type Natriuretic Peptide 13 pg/mL (0-124) Total Protein 7.9 g/dL (6.4-8.2) Albumin 4.3 g/dL (3.4-5.0) Albumin/Globulin Ratio 1.2 (1.0-1.7) Lipase 116 U/L (73-393) Urine Collection Type Unknown Urine Color (Auto) Light yellow Urine Turbidity Hazy Urine pH (Auto) 7.0 (<5.0-8.0) Urine Specific [place] 1.023 (1.000-1.030) Urine Protein (Auto) Negative mg/dL (Negative) Urine Glucose (Auto)(UA) Negative mg/dL (Negative) Urine Ketones (Auto) 20 mg/dL (Negative) Urine Blood (Auto) Negative (Negative) Urine Nitrite (Auto) Negative (Negative) Urine Bilirubin (Auto) Negative (Negative) Urine Urobilinogen (Auto) Normal mg/dL (Normal) Urine Leukocyte Esterase (Auto) Negative (Negative) Urine RBC Occ /HPF (0-2) Urine WBC Occ /HPF (0-4) Urine Squamous Epithelial Cells Few /LPF Urine Amorphous Sediment Present /HPF Urine Bacteria 0 /HPF (0-FEW) Urine Mucus Marked /LPF SARS-CoV-2 Antigen (Rapid) Negative (NEGATIVE) Problem List Problems Medical Problems: (1) Acute cholecystitis Status: Acute Assessment/Plan doing well ok to dc home Justicifation of Admission Dx: Justifications for Admission: Justification of Admission Dx: Yes Comments: cholecystitis RAFA MCMULLEN RN CORRECTIONS Aug 17, 2021 14:15
[2021-08-17 14:50] VITALS: BP 131/76
--- NOTE | 2021-08-17 16:09 | PDOC3 ---
[facility]-Discharge Summary Date of Admission: Date of Admission: Aug 16, 2021 Date of Discharge: Date of Discharge: Aug 17, 2021 Admission Diagnosis: Admitting Diagnosis: cholecystitis Hospital Course: Hospital Course: Chief Complaint Cholecystitis -Admit to MedSurg -SOD 1 -Advance diet as tolerated after surgery -As needed pain control -stool sofetener Can d/c if ok with surgical team History of Present Illness History of Present Illness 08/17 Patient evaluated examined at bedside. Resting in bed. Said pain well controlled tolerating diet. Has not had a bowel movement since before surgery. Can discharge today if okay with surgical team. Okay for discharge from surgical team. Greater than 30 minutes spent on this discharge. Disposition: Disposition/Orders: D/C to Home Activity: Activity: Resume previous activity Diet: Diet: Regular Medications: Home Meds Active Scripts Oxycodone/Apap 5-325 (PERCOCET 5-325 MG TABLET ) 1 Each Tablet, 1 TAB PO PRN Q4HRS PRN for MODERATE PAIN, #20 TAB 0 Refills Prov:RAFA MCMULLEN [employer] 08/17/21 Scheduled PRN Oxycodone/Apap 5-325 (Percocet 5-325 Mg Tablet ), 1 TAB PO PRN Q4HRS PRN for MODERATE PAIN Justicifation of Admission Dx: Justifications for Admission: Justification of Admission Dx: Yes MARKIE SHAFFER MD Aug 17, 2021 16:09
--- NOTE | 2021-08-17 16:26 | NUR ---
pt is discharged home with self care via ambulation via KRISH tucker at 1518. pt is in stable condition. pt has all belongings with him. pt received discharge instructions and was informed his prescriptions were sent to his pharmacy and he stated he had no further questions for me.
--- NOTE | 2021-08-21 12:08 | PATHOLOGY ---
[facility] Accession Number: [id number] . 01 Material submitted: . gallbladder - GALLBLADDER AND CONTENTS . 02 Diagnosis: Gallbladder, excision: - Acute and chronic cholecystitis. - Lithiasis. - Negative for malignancy. (MLK:[facility]; 08/21/2021) P 08/21/2021 0712 Local . 02 Electronically signed: . Ben Sears MD, Pathologist NPI- [id number] . 01 Gross description: . Fixative: Formalin Labeled: Gallbladder and contents Specimen received: A previously disrupted gallbladder specimen with an open cystic duct margin Dimensions: 8.3 x 3.6 x 3.1 cm Serosa: Purple-restrepo and smooth [place]it[place]: Denis-yellow, shaggy and cauterized with a full-thickness defect measuring 1.1 x 1.0 cm Lymph node: Not identified Mucosa: Green-brown and slightly roughened Average wall thickness: 0.3 cm Calculi: Multiple present displaying a yellow and granular appearance and ranging in size from 0.7-1.8 cm and measuring 4.0 x 2.7 cm in aggregate dimensions Abnormalities: None identified . A1- Color Worker body, fundus, and the cystic duct margin. ([facility]; 08/17/2021) NRI/NRI 08/17/2021 0948 Local . 02 Pathologist provided ICD-10: K80.12 . 02 CPT . 535177 Specimen Comment: A courtesy copy of this report has been sent to [phone], [phone] Specimen Comment: [id number] Specimen Comment: Report sent to / DR TREJO Performed at: [address], [place], [place] [id number] MD Miguel Palacios MD Phone: [phone] Performed at: 02 [facility] [address] [place], [place] [id number] MD Justino De Los Santos MD Phone: [phone]
== END 2021-08-17 15:18 | disposition home or self-care (01) | DRG 419 ==
LOC: ER 02:05 → 4 NORTH 05:44
PROVIDERS: ADMIT Internal Medicine; ATTEND Internal Medicine
PROC: BF131ZZ Fluoroscopy of Gallbladder and Bile Ducts using Low Osmolar Contrast (ICD-10-PCS; 2021-08-16)
PROC: 0FT44ZZ Resection of Gallbladder, Percutaneous Endoscopic Approach (ICD-10-PCS; principal; 2021-08-16 11:45)
DX: K81.0 Acute cholecystitis (principal); E11.9 Type 2 diabetes mellitus without complications; I10 Essential (primary) hypertension; Z20.822 Contact with and (suspected) exposure to COVID-19; Z82.49 Family history of ischemic heart disease and other diseases of the circulatory system
CPT/HCPCS: 36415; 71045; 74300; 76705; 80053; 81001; 83690; 83880; 84484; 85025; 85610; 85730; 87426; 88304; A4213; A4314; A4364; A4452; A4657; A4930; A6219; C1887; G0379; J0360; J1100; J1170; J2250; J2270; J2370; J2405; J2543; J2704; J3010; J3490; J7060; J7121; Q9967; 99285-25